=== PATIENT | male | born 1980 | race Caucasian/White ===

== ENCOUNTER 2019-07-25 13:35 | Emergency (ER) | payer SELFPAY ==
[2019-07-25 13:37] VITALS: BP 148/87; PULSE 82; RESP 18; TEMP 36.7; O2SAT 97; BMI 25.1
--- NOTE | 2019-07-25 14:30 | ED_ITS ---
Entered by Luis Miguel Pierce, acting as scribe for Jul 25, 2019 13:35 HPI - Abdominal Pain General: Chief Complaint: Abdominal Pain Stated Complaint: lower abd pain Time Seen by Provider: 07/25/19 14:35 History of Present Illness: HPI narrative: 39 yo male presents with lower abd pain. Pt states that he has had diarrhea for 1 week, has nausea and a low grade fever. Pt states that he has had this abdomen pain for 2 weeks. Pt was sent here from Dr. Forman office, he gave a urine sample at the PCPs office. Pt states that he has been taking antibiotics that he bought at the [employer] store. MD elicited complaint: abdominal pain Associated Symptoms: Reports diarrhea, fever(s), hematochezia and nausea; Denies chills, coffee ground emesis, constipation, GI cramping, dysuria, heartburn, hematuria, hematemesis, melena, syncope and vomiting Review of Systems Const: Reports: fever; Denies: chills, body aches, fatigue, malaise or night sweats Eyes: Denies: change in vision or blurry vision ENMT: Denies: throat pain, oral sores/lesions, dental pain, nasal discharge or nasal congestion Card: Denies: chest pain, palpitations, irregular heart rhythm, edema, syncope, shortness of breath on exertion, shortness of breath when lying down or leg pain with exertion Resp: Denies: shortness of breath, productive cough, non-productive cough or wheezing GI: Reports: abdominal pain, nausea, diarrhea and blood in stool; Denies: vomiting, vomiting blood, coffee grounds in vomit, difficulty swallowing, heartburn/indigestion, constipation, cramping or black tarry stool : Denies: flank pain, difficulty urinating, painful urination, urinary frequency, urinary urgency, urinary incontinence or blood in urine Musc: Denies: neck pain, back pain, extremity pain, extremity swelling, joint pain or joint swelling Skin/Breast: Denies: rash, itching or redness Neuro: Denies: headache, numbness in extremities, weakness in extremities, changes in sensation, lack of coordination, difficulty walking, frequent falls, dizziness, vertigo or confusion Psych: Denies: anxiety, depression, loss of interest, visual hallucinations, auditory hallucinations, suicidal ideation or homicidal ideation Endo: Denies: excessive urination, excessive thirst, tired all the time or cold intolerance Tereso/Lymph: Denies: easy bruising, easy bleeding, petechiae, enlarged lymph nodes or tender lymph nodes PFSH ED PFSH: Statuses (acute, chronic, etc) shown below reflect problem list status as previously entered and may not be historically accurate Medical History Acute prostatitis (Acute) Social History Smoking and tobacco status: never smoked Physical Exam Const: COMMON NORMALS: average body habitus, oriented x3 and alert GENERAL APPEARANCE: cooperative, comfortable, well kempt and well developed NUTRITIONAL APPEARANCE: obese ORIENTATION/CONSCIOUSNESS: Yes awake, Yes oriented to person and Yes oriented to place HENMT: COMMON NORMALS: normocephalic, head/scalp atraumatic, EAC's normal, TM's normal bilaterally, external nose normal, moist oral mucous membranes and oropharynx normal HEAD & SCALP: normocephalic and atraumatic NOSE: external nose normal EXTERNAL AUDITORY CANAL: EAC's normal TYMPANIC MEMBRANE: TM's normal bilaterally MOUTH: oral and palatal mucosa normal, lip normal and tongue normal THROAT: posterior oropharynx normal and tonsils normal Eye: COMMON NORMALS: PERRL, EOMs intact bilaterally, conjunctivae normal and no scleral icterus CONJUNCTIVA: Yes conjunctivae normal PUPIL: Yes PERRL Neck/C-Spine: COMMON NORMALS: full ROM, no lymphadenopathy, supple, no meningeal signs and thyroid normal THYROID: thyroid normal and asymmetrical Lymph: LYMPHATIC: no lymphadenopathy noted Resp: COMMON NORMALS: normal respiratory effort, no retractions, no use of accessory muscles and clear to auscultation bilaterally AUSCULTATION: clear to auscultation bilaterally Cardio: COMMON NORMALS: regular rate and regular rhythm RATE: regular rate RHYTHM: regular rhythm HEART SOUNDS: no murmurs GI: COMMON NORMALS: normal to inspection, nondistended, normoactive bowel sounds and no hepatosplenomegaly AUSCULTATION: Yes normoactive bowel sounds PALPATION: Yes tender Details: LLQ, No guarding, No rigid, Yes no hepatosplenomegaly and No ascites present : COMMON NORMALS: Yes no CVA tenderness BLADDER/KIDNEY EXAM: Yes no CVA tenderness Back/Pelvis: COMMON NORMALS: no CVA tenderness LUMBAR SPINE/LOWER BACK: Yes normal to inspection Extremity: COMMON NORMALS: no clubbing, cyanosis or edema, no calf tenderness and no pedal edema Neuro: COMMON NORMALS: oriented x3 SENSORIUM/ORIENTATION: Yes alert, Yes oriented to person and Yes oriented to place MENINGEAL SIGNS: Yes no menin geal signs Psych: APPEARANCE: Yes well kempt Skin: COMMON NORMALS: no rashes or lesions noted and skin turgor normal GENERAL SKIN EXAM: no rashes or lesions noted and turgor normal Procedures Intubation Mg Given: 20 Mg Given: 200 Course Vital Signs: Vital signs: Vital Signs Temperature 98.1 F 07/25/19 13:37 Pulse Rate 78 07/25/19 17:48 Respiratory Rate 18 07/25/19 17:48 Blood Pressure 133/68 07/25/19 17:48 Pulse Oximetry 98 07/25/19 17:48 MDM - Abdominal Pain Lab Data: Labs: Lab Results 07/25/19 07/25/19 07/25/19 Range/Units 14:40 14:40 15:45 WBC 8.3 (4.0-10.0) 10^3/ uL RBC 5.86 H (4.1-5.3) 10^6/u L Hgb 16.1 (11.7-16.6) g/dL Hct 47.5 (42.0-52.0) % MCV 81.1 (80-94) fL MCH 27.5 L (28.0-34.0) pg MCHC 33.9 (30.0-36.0) g/dL RDW 12.7 (12.1-15.1) % Plt Count 189 (130-400) 10^3/c mm MPV 10.0 (7.4-10.4) fL Neut % (Auto) 81.1 % Lymph % (Auto) 12.5 % [place] % (Auto) 4.5 % Eos % (Auto) 1.5 % Baso % (Auto) 0.2 % Neut # (Auto) 6.7 (1.8-7.7) 10^3/u L Lymph # (Auto) 1.0 (0.8-4.8) 10^3/u L [place] # (Auto) 0.4 (0.2-0.9) 10^3/u L Eos # (Auto) 0.1 (0.0-0.8) 10^3/u L Baso # (Auto) 0.0 (0.0-0.1) 10^3/u L Nucleated RBC % (a uto) 0 % Nucleated RBCs # 0.0 /100WBC Sodium 136 (136-145) mmol/L Potassium 3.9 (3.5-5.1) mmol/L Chloride 102 (98-107) mmol/L Carbon Dioxide 23 (22-29) mmol/L Anion Gap 14.9 (5-19) BUN 14 (6-20) mg/dL Creatinine 0.7 (0.7-1.2) mg/dL GFR Calculation 126.2 (90-130) mL/min Glucose 90 (74-109) mg/dL Calcium 9.2 (8.6-10.0) mg/Dl Total Bilirubin 0.9 (0.15-1.2) mg/dL AST 17 (0-40) U/L ALT 21 (0-41) U/L Alkaline Phosphata se 70 (40-130) IU/L Total Protein 6.9 (6.6-8.7) g/dL Albumin 4.3 (3.5-5.2) g/dL Globulin 2.6 (1.3-4.6) g/dL Lipase 29 (13-60) U/L Urine Color Yellow (Yellow) Urine Appearance Clear (CLEAR) Urine pH 5 (5-7) Ur Specific Gravit y 1.025 (1.005-1.030) Urine Protein Neg (Negative) Urine Glucose (UA) Norm (Normal) Urine Ketones 1+ H (Negative) Urine Occult Blood Neg (Negative) Urine Nitrate Negative (Negative) Urine Bilirubin Neg (NEGATIVE) Urine Urobilinogen Norm (Negative) mg/dL Ur Leukocyte Candace ase Negative (Negative) Urine RBC Rare (0-2) /hpf Urine WBC 0-4 H (0-5) /hpf Ur Squamous Epith Cells 0-4 H (0-5) Urine Bacteria Trace (NONE) Urine Mucus 1+ Imaging Data ^: CT Abd/Pel: Radiologist's impression: Patient: Antonio Bell Unit #: [id number] : 1980 Acct#:O [id number] Age/Sex: 39 / M ADM Date: 07/25/19 Loc: ER Room/Bed: Attending Dr: Ordering Provider/Ordering MD: Maciej Cleveland DO Date of Service: 07/25/19 Procedure(s): CT abdomen pelvis w con* [id number] Accession Number(s): [id number] Report Number: [id number] WS: [id number] CT ABDOMEN PELVIS TECHNIQUE: Contrast-enhanced CT of the abdomen and pelvis with coronal and sagittal reformatted images. CLINICAL INFORMATION: LLQ abd pain COMPARISON: None. DLP: 1553.[address] scans at [facility] use at least one of these dose optimization techniques: automated exposure control; mA and/or kV adjustment per patient size (includes targeted exams where dose is matched to clinical indication); or iterative reconstruction. FINDINGS: Normal liver and spleen. Normal gallbladder. Lung bases are well aerated. Normal portal vein and splenic vein. Normal left renal parenchymal enhancement. Small renal cyst. Left adrenal gland is normal. Normal pancreas. Normal caliber abdominal aorta. Normal GE junction. Absent right kidney. Slightly prominent fluid distended loops of small bowel with a few air-fluid levels. Persistent air within the colon. No evidence of high-grade obstruction. Findings can be seen with small bowel enteritis. Appendix is not visualized. No evidence of acute appendicitis. Attempted notification Maciej Cleveland DO at 07/25/2019 4:[address]/CT abdomen pelvis w con* [id number] IMPRESSION: 1. 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 2. Normal left renal parenchymal enhancement. 3. Slightly prominent fluid-filled loops of small bowel with a few air-fluid levels. Persistent air within the colon. Findings can be seen with small bowel enteritis. 4. No evidence of high-grade obstruction. 5. No free fluid in the abdomen or pelvis. 6. Appendix is not visualized. Dictated By: Roman Dorado MD Signed By: Roman Dorado MD Signed Date/Time:07/25/196 DD/ 160 Discharge Plan Discharge Patient Disposition: Home, Self-Care Clinical Impression: Colitis Condition: Stable Prescriptions: New ciprofloxacin HCl 500 mg tablet 500 mg PO BID Qty: 14 RF: 0 Flagyl 500 mg tablet 500 mg PO BID 7 Days Qty: 14 RF: 0 promethazine 25 mg tablet 25 mg PO Q6H PRN (Reason: nausea and vomiting) Qty: 10 RF: 0 Referrals: Krzysztof Venegas DO [Primary Care Provider] - 7-10 days Discharge Diet: Clear Liquid Discharge Activity: Increase activity as tolerated Discharge Date/Time: 07/25/19 17:53 Coding Level of Care Code ED Hot Billet Shear Operator for Chg Fwd Exam Problem Focused The documentation recorded by the Stan randhawa Kialy, accurately reflects the service I personally performed and the decisions made by Megha will Curtis L, DO Jul 25, 2019 13:35
[2019-07-25 14:49] LABS: Basophils % 0.2 %; Eosinophils # 0.1 10^3/uL (0.0-0.8); Eosinophils % 1.5 %; Hematocrit 47.5 % (42.0-52.0); Hemoglobin 16.1 g/dL (11.7-16.6); Lymphocytes % 12.5 %; Mean Corpuscular HGB Conc 33.9 g/dL (30.0-36.0); Mean Corpuscular Hemoglobin 27.5 pg (28.0-34.0); Mean Corpuscular Volume 81.1 fL (80-94); Monocytes # 0.4 10^3/uL (0.2-0.9); Monocytes % 4.5 %; Neutrophils # 6.7 10^3/uL (1.8-7.7); Neutrophils % 81.1 %; Nucleated Red Blood Cells % 0 %; Platelet Count 189 10^3/cmm (130-400); Red Blood Count 5.86 10^6/uL (4.1-5.3); Red Cell Distribution Width 12.7 % (12.1-15.1); White Blood Count 8.3 10^3/uL (4.0-10.0)
[2019-07-25 15:03] LABS: Alanine Aminotransferase 21 U/L (0-41); Albumin Level 4.3 g/dL (3.5-5.2); Alkaline Phosphatase 70 IU/L (40-130); Anion Gap 14.9 (5-19); Aspartate Amino Transferase 17 U/L (0-40); Blood Urea Nitrogen 14 mg/dL (6-20); Calcium 9.2 mg/Dl (8.6-10.0); Carbon Dioxide 23 mmol/L (22-29); Chloride 102 mmol/L (98-107); Globulin 2.6 g/dL (1.3-4.6); Glomerular Filtration Rate 126.2 mL/min (90-130); Glucose 90 mg/dL (74-109); Lipase 29 U/L (13-60); Potassium 3.9 mmol/L (3.5-5.1); Sodium 136 mmol/L (136-145); Total Bilirubin 0.9 mg/dL (0.15-1.2); Total Protein 6.9 g/dL (6.6-8.7)
[2019-07-25] MEDS: sodium chloride 0.9% 1,000 ML 999 ML IV (15:05)
[2019-07-25] MEDS: sodium chloride 0.9% 1,000 ML 150 ML IV (15:06)
--- NOTE | 2019-07-25 15:13 | PC.NURSE ---
Patient reports at this time he does not want the zofran or morphine ordered at this time.
--- NOTE | 2019-07-25 15:14 | CT_ITS ---
WS: [id number] CT ABDOMEN PELVIS TECHNIQUE: Contrast-enhanced CT of the abdomen and pelvis with coronal and sagittal reformatted image s. CLINICAL INFORMATION: LLQ abd pain COMPARISON: None. DLP: 1553.[address] scans at [facility] use at least one of these dose optimization techniques: automat ed exposure control; mA and/or kV adjustment per patient size (includes targeted exams where dose is matched to clinical indication); or iterative reconstruction. FINDINGS: Normal liver and spleen. Normal gallbladder. Lung bases are well aerated. Normal portal vein and sple destin vein. Normal left renal parenchymal enhancement. Small renal cyst. Left adrenal gland is normal. Normal pancreas. Normal caliber abdominal aorta. Normal GE junction. Absent right kidney. Slightly prominent fluid distended loops of small bowel with a few air-fluid levels. Persistent air w ithin the colon. No evidence of high-grade obstruction. Findings can be seen with small bowel enterit is. Appendix is not visualized. No evidence of acute appendicitis. Attempted notification Maciej Cleveland DO at 07/25/2019 4:[address]/CT abdomen pelvis w con* [id number] IMPRESSION: 1. 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 2. Normal left renal parenchymal enhancement. 3. Slightly prominent fluid-filled loops of small bowel with a few air-fluid l evels. Persistent air within the colon. Findings can be seen with small bowel e nteritis. 4. No evidence of high-grade obstruction. 5. No free fluid in the abdomen or pelvis. 6. Appendix is not visualized.
[2019-07-25] MEDS: iohexol 300 mg/mL 100 mL Btl IV (15:49)
[2019-07-25 16:05] LABS: Urine Appearance Clear (CLEAR); Urine Color Yellow (Yellow); pH Urine 5 (5-7)
[2019-07-25 16:06] LABS: Bilirubin Urine Neg (NEGATIVE); Blood Urine Neg (Negative); Glucose Urine UA Norm (Normal); Ketones Urine 1+ (Negative); Leukocyte Esterase Urine Negative (Negative); Nitrate Urine Negative (Negative); Protein Urine Neg (Negative); Specific Gravity, Urine 1.025 (1.005-1.030); Urobilinogen Urine Norm (Negative)
[2019-07-25 16:17] LABS: Bacteria Urine TRACE; Mucus Urine 1+; RBC Urine RARE /hpf (0-2); Squamous Epithelial Cell Urine 0-4 (0-5); WBC Urine 0-4 /hpf (0-5)
[2019-07-25 16:18] LABS: Add Urine Culture? No
[2019-07-25 17:48] VITALS: BP 133/68; PULSE 78; RESP 18; O2SAT 98
== END 2019-07-25 17:53 | disposition home or self-care (01) ==
PROVIDERS: Emergency Medicine; Emergency Provider Family Medicine; Family Provider Electrodiagnostic Medicine; PCP Electrodiagnostic Medicine
DX: K52.9 Noninfective gastroenteritis and colitis, unspecified (principal)
CPT/HCPCS: 36415; 74177; 80053; 81001; 83690; 85025; 96360; 96361; 99282; A9270; J7030; Q9967

== ENCOUNTER → 2020-02-02 13:22 | Outpatient (BNVA) | payer OTHER, SELFPAY | PROVIDERS: Family Provider Electrodiagnostic Medicine; PCP Electrodiagnostic Medicine; Visit Provider Nurse Practitioner | DX: U07.1 COVID-19 (principal) | CPT/HCPCS: 87635 ==

== ENCOUNTER 2022-02-26 18:16 | Emergency (ER) | payer SELFPAY ==
[2022-02-26 18:27] VITALS: BP 155/84; PULSE 73; RESP 16; TEMP 36.7; O2SAT 96; BMI 32.8
--- NOTE | 2022-02-26 18:30 | ECG_ITS ---
[facility] Test Date: 2022-02-26 Pat Name: Antonio Bell Department: Room: Gender: Male Ship Fitter: : 1980 Requested By: Geovany Duong Order Number: [id number] Radha MD: Chase Lozada M.D. Measurements Intervals [place] Rate: 69 P: 66 NH: 182 QRS: -5 QRSD: 105 T: 47 QT: 371 QTc: 399 Interpretive Statements SINUS RHYTHM NONSPECIFIC T-WAVE ABNORMALITY No previous ECG available for comparison Electronically Signed On 02-27-2022 17:38:08 CDT by Chase Lozada M.D. [id number]
--- NOTE | 2022-02-26 20:57 | XRR_ITS ---
PROCEDURE INFORMATION: Exam: XR Chest Exam date and time: 02/26/2022 9:04 PM Age: 41 years old Clinical indication: Pain; Patient HX: C/O chest pressure, coughing x 3 months; Additional info: Cp TECHNIQUE: Imaging protocol: Radiologic exam of the chest. Views: 1 view. COMPARISON: CT abdomen pelvis w con* [id number] 07/25/2019 4:01 PM FINDINGS: Lungs: Lungs are clear. Pleural spaces: Unremarkable. No pleural effusion. No pneumothorax. Heart/Mediastinum: Heart is within normal limits of size. Bones/joints: Unremarkable. XR/XR chest 1V portable [id number] IMPRESSION: No acute infiltrates.
--- NOTE | 2022-02-26 21:58 | ED_ITS ---
HPI - Chest Pain General: Chief Complaint: Chest Pain Stated Complaint: sob, cough, chest pressure Time Seen by Provider: 02/26/22 21:44 Source: patient Mode of arrival: ambulatory Limitations: no limitations History of Present Illness: 41-year-old male states that he has had a chronic cough for 3 to 4 years but states that over the last 2 days has been having some palpitations along with some slight chest pain and dyspnea. States he is concerned because he is on a long trip to [place] where he drove there and back. States he is also had some fatigue and generalized weakness he is in no distress at this time no history of heart disease. Denies vomiting or diarrhea. Associated symptoms: Reports dyspnea; Deny abdominal pain, fever(s), nausea or vomiting Review of Systems Const: Denies: fever(s), chills, body aches or change in appetite Eyes: Denies: blurry vision or eye discomfort ENMT: Denies: throat pain or dental pain Card: Reports: chest pain Resp: Reports: dyspnea and non-productive cough GI: Denies: abdominal pain, nausea, vomiting or diarrhea : Denies: dysuria Musc: Denies: neck pain or back pain Skin/Breast: Denies: rash Neuro: Denies: headache(s) Psych: Denies: depression Tereso/Lymph: Denies: easy bruising All/Imm: Denies: urticaria PFSH ED PFSH: Medical History (Updated 02/26/22 @ 22:49 by Geovany Duong MD) Acute prostatitis Social History Smoking and tobacco status: never smoked Physical Exam Const: COMMON NORMALS: no acute distress, patient oriented x3 and healthy appearing HENMT: COMMON NORMALS: normocephalic and atraumatic HEAD & SCALP: normocephalic and atraumatic Eye: COMMON NORMALS: Equal, round and reactive pupils present and EOMs intact bilaterally PUPIL: Yes Equal, round and reactive pupils present Neck/C-Spine: COMMON NORMALS: full ROM and supple Chest: COMMONS NORMALS: normal inspection of the chest and normal palpation of entire chest wall Resp: COMMON NORMALS: normal respiratory effort, No retractions, No use of accessory muscles and clear to auscultation bilaterally AUSCULTATION: clear t o auscultation bilaterally Cardio: COMMON NORMALS: regular rate, regular rhythm and No murmurs present (Cardio) RATE: regular rate RHYTHM: regular rhythm GI: COMMON NORMALS: Normal to inspection, nondistended, normoactive bowel sounds present, Soft to palpation, non-tender and no masses PALPATION: Yes Soft to palpation Extremity: COMMON NORMALS: normal to inspection and full ROM Neuro: COMMON NORMALS: patient oriented x3, moves all extremities and no focal motor deficits Psych: COMMON NORMALS: mental status grossly normal, Normal thought process present and cooperative THOUGHT PROCESS: Normal thought process present Skin: COMMON NORMALS: no rashes or lesions noted and no wounds GENERAL SKIN EXAM: no rashes or lesions noted Course Vital Signs: Vital signs: Vital Signs Temperature 98.0 F 02/26/22 18:27 Pulse Rate 61 02/26/22 22:00 Respiratory Rate 26 H 02/26/22 22:00 Blood Pressure 124/73 02/26/22 22:00 Pulse Oximetry 98 02/26/22 22:00 MDM - Chest Pain Medical Decision Making Patient presents here with chest pain along with a chronic cough is atypical in nature his troponin here D-dimer negative he has no signs of acute coronary syndrome or dissection he is stable for discharge he is to follow-up with PCP in 2 to 4 days and return if worsening he understands agrees to plan. Lab Data : 02/26/22 21:50 02/26/22 21:50 Radiology Impressions Chest X-Ray 02/26/22 20:57 IMPRESSION: No acute infiltrates. Laboratory Results WBC 10.0 10^3/uL (4.0-10.0) 02/26/22 21:50 RBC 5.75 10^6/uL (4.1-5.3) H 02/26/22 21:50 Hgb 16.1 g/dL (11.7-16.6) 02/26/22 21:50 Hct 47.4 % (42.0-52.0) 02/26/22 21:50 MCV 82.4 fl (80-94) 02/26/22 21:50 MCH 28.0 pg (28.0-34.0) 02/26/22 21:50 MCHC 34.0 g/dL (30.0-36.0) 02/26/22 21:50 RDW 12.9 % (12.1-15.1) 02/26/22 21:50 Plt Count 216 10^3/cmm (130-400) 02/26/22 21:50 MPV 10.1 fL (7.4-10.4) 02/26/22 21:50 Neut % (Auto) 52.9 % 02/26/22 21:50 Lymph % (Auto) 38.1 % 02/26/22 21:50 [place] % (Auto) 4.3 % 02/26/22 21:50 Eos % (Auto) 3.4 % 02/26/22 21:50 Baso % (Auto) 1.0 % 02/26/22 21:50 Neut # (Auto) 5.27 10^3/uL (1.8-7.7) 02/26/22 21:50 Lymph # (Auto) 3.8 10^3/uL (0.8-4.8) 02/26/22 21:50 [place] # (Auto) 0.4 10^3/uL (0.2-0.9) 02/26/22 21:50 Eos # (Auto) 0.3 10^3/uL (0.0-0.8) 02/26/22 21:50 Baso # (Auto) 0.1 10^3/uL (0.0-0.1) 02/26/22 21:50 Nucleated RBC % (auto) 0 % 02/26/22 21:50 Nucleated RBCs # 0.0 /100WBC 02/26/22 21:50 D-Dimer 0.34 ug/mIFEU (0-0.59) 02/26/22 21:50 Sodium 139 mmol/L (136-145) 02/26/22 21:50 Chloride 104 mmol/L (98-107) 02/26/22 21:50 Carbon Dioxide 23 mmol/L (22-29) 02/26/22 21:50 BUN 10 mg/dL (6-20) 02/26/22 21:50 Creatinine 0.7 mg/dL (0.7-1.2) 02/26/22 21:50 GFR Calculation 124.9 mL/min (90-130) 02/26/22 21:50 Glucose 113 mg/dL (65-115) 02/26/22 21:50 Calculated Osmolality 288 mOsm/kg (285-295) 02/26/22 21:50 Calcium 8.7 mg/dL (8.5-10.5) 02/26/22 21:50 Total Bilirubin 0.3 mg/dL (0.15-1.2) 02/26/22 21:50 AST 14 U/L (0-40) 02/26/22 21:50 ALT 24 U/L (0-41) 02/26/22 21:50 Alkaline Phosphatase 67 IU/L (40-130) 02/26/22 21:50 Troponin T Baseline 6 ng/L (0-15) 02/26/22 21:50 Albumin 3.9 g/dL (3.5-5.2) 02/26/22 21:50 Globulin 2.5 g/dL (1.3-4.6) 02/26/22 21:50 TSH 2.74 uIU/mL (0.27-4.20) 02/26/22 21:50 EKG Data EKG 1: I personally reviewed and interpreted this EKG as follows: EKG interpretation date: 02/26/22 EKG interpretation time: 18:23 Discharge Plan Discharge Patient Disposition: Home Clinical Impression: Chest pain Qualifiers: Chest pain type: unspecified Qualified Code(s): R07.9 - Chest pain, unspecified Condition: Stable Prescriptions: No Action hydrocortisone acetate 30 mg suppository 30 mg MI BID Qty: 12 0RF Discharge Orders: Discharge ED (Routine); Ordered 02/26/22 Ordered By: Geovany Duong Referrals: Krzysztof Venegas, [Primary Care Provider] - Discharge Diet: Advance as tolerated Discharge Activity: Resume usual activity Patient Instructions: Chest Pain (ED) Coding Level of Care Code ED Apprentice Funeral Director for Chg Fwd Exam Comprehensive
[2022-02-26 22:00] VITALS: BP 124/73; PULSE 61; RESP 26; O2SAT 98
[2022-02-26 22:06] LABS: Basophils # 0.1 10^3/uL (0.0-0.1); Eosinophils # 0.3 10^3/uL (0.0-0.8); Eosinophils % 3.4 %; Hematocrit 47.4 % (42.0-52.0); Hemoglobin 16.1 g/dL (11.7-16.6); Lymphocytes # 3.8 10^3/uL (0.8-4.8); Lymphocytes % 38.1 %; Mean Corpuscular Volume 82.4 fl (80-94); Mean Platelet Volume 10.1 fL (7.4-10.4); Monocytes # 0.4 10^3/uL (0.2-0.9); Monocytes % 4.3 %; Neutrophils # 5.27 10^3/uL (1.8-7.7); Neutrophils % 52.9 %; Nucleated Red Blood Cells % 0 %; Platelet Count 216 10^3/cmm (130-400); Red Blood Count 5.75 10^6/uL (4.1-5.3); Red Cell Distribution Width 12.9 % (12.1-15.1)
[2022-02-26 22:21] LABS: D Dimer 0.34 ug/mIFEU (0-0.59)
[2022-02-26 22:33] LABS: Troponin(5th) Baseline 6 ng/L (0-15)
[2022-02-26 22:43] LABS: Alanine Aminotransferase 24 U/L (0-41); Albumin Level 3.9 g/dL (3.5-5.2); Alkaline Phosphatase 67 IU/L (40-130); Aspartate Amino Transferase 14 U/L (0-40); Blood Urea Nitrogen 10 mg/dL (6-20); Calcium 8.7 mg/dL (8.5-10.5); Carbon Dioxide 23 mmol/L (22-29); Chloride 104 mmol/L (98-107); Globulin 2.5 g/dL (1.3-4.6); Glomerular Filtration Rate 124.9 mL/min (90-130); Glucose 113 mg/dL (65-115); Osmolality Calculated 288 mOsm/kg (285-295); Sodium 139 mmol/L (136-145); Thyroid Stimulating Hormone 2.74 uIU/mL (0.27-4.20); Total Bilirubin 0.3 mg/dL (0.15-1.2); Total Protein 6.4 g/dL (6.6-8.7)
[2022-02-26 22:51] LABS: Anion Gap 15.8 (5-19); Potassium 3.8 mmol/L (3.5-5.1)
[2022-02-26 22:59] VITALS: BP 110/71; PULSE 61; RESP 21; O2SAT 95
== END 2022-02-26 23:00 | disposition home or self-care (01) ==
PROVIDERS: Emergency Provider Emergency Medicine; PCP Electrodiagnostic Medicine
DX: R07.9 Chest pain, unspecified (principal)
CPT/HCPCS: 71045; 80053; 84443; 84484; 85025; 85378; 93005; 99285

== ENCOUNTER 2025-04-09 10:24 | Outpatient (CLI) | payer SELFPAY ==
--- NOTE | 2025-04-09 10:45 | CT_ITS ---
WS: [id number] CT ABDOMEN AND PELVIS WITH CONTRAST HISTORY: LT LOWER BACK PAIN TECHNIQUE: Imaging performed of the abdomen and pelvis with IV contrast. Single phase imaging of the abdomen. Coronal and sagittal reformats are submitted. All CT scans at [facility] use at least one of these dose optimization techniques: automated exposure control; mA and/or kV adjustment per patient size (includes targeted exams where dose is matched to clinical indication); or iterative reconstruction. IV CONTRAST: Omnipaque 350; 100 mL IV. Oral contrast: No DLP: 664.51 mGy.cm COMPARISON: 07/25/2019 Lower thorax: Lung bases are clear. Heart is normal size. Small hiatal hernia. Liver/biliary system: Liver is mildly elongated at 20 cm in length. Otherwise normal. Gallbladder: Normal. No gallstones or wall thickening. No pericholecystic fluid. Pancreas: Normal size pancreas and pancreatic duct. No adjacent inflammation. Spleen: Normal size spleen. No mass or infarct. Adrenal glands: Normal. Right kidney: Prior nephrectomy. Left kidney: Enlarging low-attenuation masses superior pole LEFT kidney. The largest measures 1.8 x 1.1 cm with elevated Hounsfield units. There is a smaller more posterior low-attenuation mass measuring 0.9 x 0.7 cm. No obstruction of the kidney. Aorta: Normal. Lymphadenopathy: None. Free fluid: None. GI tract: No GI tract obstruction. Appendix is partially visualized and normal. No colitis. Abdominal wall: Fat containing umbilical hernia. Pelvis: No free fluid or adenopathy within the pelvis. Bones: Bilateral pars defects at L2 are stable. No acute fractures. Mild lumbar spine stenosis at L4-5. CT/CT abdomen pelvis w con* [id number] IMPRESSION: 1. No acute abdominal or pelvic abnormalities. 2. Prior RIGHT nephrectomy. 3. Enlarging indeterminate low-attenuation masses from the superior pole LEFT kidney. These have increased in size since 2019. Recommend MRI evaluation of th e LEFT kidney with and without contrast. 4. No ascites or adenopathy. 5. Prior L2 bilateral pars defects. 6. No lumbar spine fracture. 7. Mild lumbar stenosis at L4-5. This can be further evaluated by MRI.
== END 2025-04-09 10:25 | disposition home or self-care (01) ==
LOC: RAD 10:27
PROVIDERS: PCP Electrodiagnostic Medicine; Visit Provider Electrodiagnostic Medicine
DX: M54.50 Low back pain, unspecified (principal)
CPT/HCPCS: 74177